=== PATIENT | male | born 1960 | race Caucasian/White ===

== ENCOUNTER 2017-02-03 12:20 | Day surgery (SDC) | payer OTHER ==
[~2017-02-03] VITALS: Ht 175.3 cm; Wt 127.0 kg
[~2017-02-03 12:20] MED LIST: ASPIR-LOW81 MG PO; ASPIRIN81 M1 PO; FIBER TABS625 MG PO; FLECAINIDE ACET50 MG PO; LANSOPRAZOLE30 MG PO; LOSARTAN-HCTZ1 EAC1 PO; MEN'S MULTI-VI1 EACH PO; XARELTO20 MG PO
== END 2017-02-03 15:20 | disposition home or self-care (01) ==
LOC: CATH 12:20
PROC: 5A2204Z Restoration of Cardiac Rhythm, Single (ICD-10-PCS; principal; 2017-02-03)
DX: I48.1 Persistent atrial fibrillation (principal); I48.3 Typical atrial flutter; Z79.01 Long term (current) use of anticoagulants; D64.9 Anemia, unspecified; I45.0 Right fascicular block; G47.33 Obstructive sleep apnea (adult) (pediatric); K21.9 Gastro-esophageal reflux disease without esophagitis; E66.01 Morbid (severe) obesity due to excess calories; Z68.42 Body mass index [BMI] 45.0-49.9, adult; Z79.82 Long term (current) use of aspirin
CPT/HCPCS: 93005